=== PATIENT | male | born 1980 | race Caucasian/White ===

== ENCOUNTER → 2019-09-05 | Outpatient (CLI) | payer OTHER ==
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
== END ==
LOC: M LRY 09:59
PROVIDERS: ATTEND Physician Assistant
DX: M25.511 Pain in right shoulder (principal)

== ENCOUNTER → 2021-08-25 | Outpatient (REF) | payer OTHER | LOC: M SMT 13:07 | PROVIDERS: ATTEND Physician Assistant | DX: N20.1 Calculus of ureter (principal) ==

== ENCOUNTER → 2022-06-14 | Outpatient (CLI) | payer OTHER | LOC: M WUC 11:53 | PROVIDERS: ATTEND Physician Assistant | DX: S60.051A Contusion of right little finger without damage to nail, initial encounter (principal); X58.XXXA Exposure to other specified factors, initial encounter; Y92.9 Unspecified place or not applicable; Y93.9 Activity, unspecified; Y99.9 Unspecified external cause status ==

== ENCOUNTER → 2023-06-23 | Outpatient (CLI) | payer OTHER | LOC: M LAB 12:05 | PROVIDERS: ATTEND Registered Nurse | DX: R00.2 Palpitations (principal) ==

== ENCOUNTER 2024-05-29 10:18 | Day surgery (SDC) | payer OTHER ==
[~2024-05-29] VITALS: Ht 177.8 cm; Wt 119.3 kg
[~2024-05-29 10:18] MED LIST: BUSP10TA PO; HYDR12.55 PO; LIDOCAINE 2% 100MG/5ML SDV (FOR ANES.) As Ordered ONE; LISI5TAB11 PO; ROSU5TAB49 PO; SERT50TA29 PO; propofoL 200 MG/20 ML VIAL As Ordered ONE
[2024-05-29 12:16] VITALS: TEMP 97
[2024-05-29 12:31] VITALS: BP 128/65; O2SAT 94
== END 2024-05-29 12:34 | disposition home or self-care (01) ==
LOC: M OPP 10:18
PROVIDERS: ATTEND Surgery
DX: Z12.11 Encounter for screening for malignant neoplasm of colon (principal); R19.5 Other fecal abnormalities; D12.3 Benign neoplasm of transverse colon; D12.7 Benign neoplasm of rectosigmoid junction; D12.5 Benign neoplasm of sigmoid colon; Z88.8 Allergy status to other drugs, medicaments and biological substances; Z79.899 Other long term (current) drug therapy; Z87.891 Personal history of nicotine dependence

== ENCOUNTER → 2024-06-03 | Outpatient (CLI) | payer OTHER ==
[~2024-06-03] MED LIST changes: -LIDOCAINE 2% 100MG/5ML SDV (FOR ANES.) As Ordered ONE; -propofoL 200 MG/20 ML VIAL As Ordered ONE
== END ==
LOC: M WHC 08:23
PROVIDERS: ATTEND Student in an Organized Health Care Education/Training Program
DX: D45 Polycythemia vera (principal); K76.89 Other specified diseases of liver; K76.0 Fatty (change of) liver, not elsewhere classified

== ENCOUNTER → 2024-10-25 | Outpatient (CLI) | payer OTHER | LOC: M RAD 07:54 → M PLARAD 07:54 | PROVIDERS: ATTEND Physician Assistant | DX: M50.123 Cervical disc disorder at C6-C7 level with radiculopathy (principal); M47.812 Spondylosis without myelopathy or radiculopathy, cervical region; M48.02 Spinal stenosis, cervical region ==

== ENCOUNTER → 2024-11-04 | Outpatient (CLI) | payer OTHER | LOC: M SLEEP HO 10:48 | PROVIDERS: ATTEND Physician Assistant | DX: G47.33 Obstructive sleep apnea (adult) (pediatric) (principal); R40.0 Somnolence ==

== ENCOUNTER → 2024-12-16 | Outpatient (CLI) | payer OTHER | LOC: M RAD 09:21 | PROVIDERS: ATTEND Internal Medicine Hematology & Oncology | DX: K76.89 Other specified diseases of liver (principal); K76.0 Fatty (change of) liver, not elsewhere classified ==